=== PATIENT | female | born 1945 | race Caucasian/White ===

== ENCOUNTER 2016-10-18 08:12 | Day surgery (SDC) | payer MEDICARE, BC ==
[~2016-10-18] VITALS: Ht 170.2 cm; Wt 72.6 kg
--- NOTE | ~2016-10-18 | OP ---
Record Of Operation [facility] [address] [place]. [address] NAME: NUHA NAYLOR : 41 STATUS : REG [facility]#: [id number] AGE: 71 ADM/REG DATE : 10/18/16 MR#: [id number] REPORT SERV DATE: 10/18/16 DICTATED BY: GUILHERME ANTHONY DATE: 10/18/16 REPORT STATUS : Draft TRANSCRIBED BY: MODL DATE: 10/18/16 DATE OF PROCEDURE: 10/18/2016 PREOPERATIVE DIAGNOSIS: Left ureteral stone. POSTOPERATIVE DIAGNOSIS: Left ureteral stone. OPERATIVE PROCEDURE: 1. Left ureteroscopy with stone extraction. 2. Left ureteral stent placement. 3. Cysto left retrograde pyelogram. ANESTHESIA: General endotracheal. SPECIMENS: Ureteral stone. DRAINS: #6-Scottish 26 cm Microvasive Percuflex stent. COMPLICATIONS: None. ESTIMATED BLOOD LOSS: Less than 3 mL. IMMEDIATE POSTOP: Satisfactory. DESCRIPTION OF PROCEDURE: The patient was brought to the cysto suite, given inhalational anesthetic, and placed in lithotomy position. Perineum and genitalia were prepped and draped in sterile fashion. Video cystourethroscopy was then performed using #22 cystoscope Foroblique lens. Immediately noted was hyperemia and edema around the left ureteral orifice. The orifice was easily identifiable, however. A left retrograde pyelogram was performed using a #8 cone-tipped ureteral catheter. This revealed filling of a normal intramural ureter with a small filling defect and a subtle caliber change in the ureter at the location of a suspect calcification seen on KUB prior to her surgery and keeping with the patient's known history of ureteral stone. At this point, a 0.35 Sensor wire was passed into the ureter and up into what was felt to be the pyelocalyceal system. A 5-Scottish open- ended Pollack catheter was then passed over the wire up into the pyelocalyceal system and dilute contrast was injected in a retrograde fashion opacifying a dilated pyelocalyceal system. The wire was replaced into the upper pole collecting system through the Pollack catheter, which was removed leaving the wire in place. A 4 cm UroMax dilating balloon was then passed over the wire, and the balloon was then inflated using the included pressure type syringe while observing on-table fluoroscopy. Strict adherence to manufacture's balloon pressure limitations were followed. The balloon was deflated and removed leaving the wire in place. The cystoscope was removed leaving the wire in place. A short rigid ureteroscope was then passed under video monitoring per urethra easily into the left distal ureter where an irregular yellow stone was identified. It was engaged in a Hinds stone basket and extracted without difficulty. The scope was reintroduced. There were noted no additional stone fragments noted. There was no evidence of trauma to the ureter. The Record Of Operation [address] [address] NAME: NUHA NAYLOR : 41 STATUS : [place] [facility] [place] PAT#: [id number] AGE: 71 ADM/REG DATE : 10/18/16 MR#: [id number] REPORT SERV DATE: 10/18/16 DICTATED BY: GUILHERME ANTHONY DATE: 10/18/16 REPORT STATUS : Draft TRANSCRIBED BY: RAFAEL DATE: 10/18/16 cystoscope was then reintroduced over the wire and a 6-Scottish, 26 cm Microvasive Percuflex stent without removal suture was passed over the wire and pushed up into the pyelocalyceal system. The wire was removed. The stent assumed normal configuration both proximally and distally. This was documented on-table fluoroscopy. At this point, the cystoscope was removed. The patient was awakened and sent to recovery in satisfactory condition. /RAFAEL Guilherme Anthony M.D. / [id number] CC: Denise Prince M.D.
[~2016-10-18 08:12] MED LIST: ACET500CAP PO; ASAB PO; CRANBERRY PO; DCN100 PO; ESTRACE VAGIN42.5 GM V; FISH OIL1200 MG PO; MONODOX100 MG PO; PRILO PO; PROBIOTIC PO; SYN88 PO; ZYRTEC ALLGY10 MG PO
[2016-10-18 08:42] LABS: BASOPHILS 1.2 %; BASOPHILS ABSOLUTE 0.06 10/3/uL (0.0-0.16); EOSINOPHILS 3.2 %; EOSINOPHILS ABSOLUTE 0.16 10/3/uL (0.0-0.53); HEMATOCRIT 41.2 % (36.0-48.0); HEMOGLOBIN 13.9 g/dL (12.0-16.0); IMMATURE GRANULOCYTES 0.2 %; IMMATURE GRANULOCYTES ABSOLUTE 0.01 10/3/uL (0.0-0.11); LYMPHOCYTES 37.1 %; LYMPHOCYTES ABSOLUTE 1.87 10/3/uL (0.67-4.30); MEAN CORPUS HGB CONC 33.7 g/dL (32.0-36.0); MEAN CORPUSCULAR HEMOGLOB 29.9 pg (26.0-34.0); MEAN CORPUSCULAR VOLUME 88.6 fL (80-100); MEAN PLATELET VOLUME 10.4 fL (9.2-13.0); MONOCYTES 11.3 %; MONOCYTES ABSOLUTE 0.57 10/3/uL (0.21-1.20); NEUTROPHILS ABSOLUTE 2.37 10/3/uL (2.02-8.40); PLATELET COUNT 256 10/3/uL (150-400); RBC DISTRIBUTION WIDTH 12.9 % (12.0-16.0); RED CELL COUNT 4.65 10/6/uL (4.0-5.6)
[2016-10-18 08:43] LABS: MANUAL DIFF NO %
[2016-10-18 08:59] LABS: A/G RATIO 1.1 (0.7-1.9); ALBUMIN 3.8 G/DL (3.5-5.0); ALKALINE PHOSPHATASE 73 U/L (45-117); BUN (BLOOD UREA NITROGEN) 13 MG/DL (6-23); CHLORIDE, SERUM 106 MMOL/L (96-112); CO2 (CARBON DIOXIDE) 30 MMOL/L (24-34); CREATININE 0.52 MG/DL (0.55-1.02); GFR AFRICAN AMERICAN 110 ML/MIN (>=60); GFR NON AFRICAN AMERICAN 95 ML/MIN (>=60); GLOBULIN 3.6 G/DL (2.5-4.1); GLUCOSE, SERUM 90 MG/DL (60-99); POTASSIUM, SERUM 4.1 MMOL/L (3.5-5.3); SGOT(AST) 14 U/L (5-40); SGPT(ALT) 23 U/L (5-65); SODIUM, SERUM 141 MMOL/L (135-148); TOTAL BILIRUBIN 0.4 MG/DL (0-1.2); TOTAL PROTEIN 7.4 G/DL (6.0-8.5)
[2016-10-21 01:15] LABS: STONE COMPOSITION TWO DNR (())
== END 2016-10-18 14:43 | disposition home or self-care (01) ==
LOC: SDC 08:12
PROVIDERS: Urology
PROC: 0T778DZ Dilation of Left Ureter with Intraluminal Device, Via Natural or Artificial Opening Endoscopic (ICD-10-PCS; 2016-10-18)
PROC: BT1FZZZ Fluoroscopy of Left Kidney, Ureter and Bladder (ICD-10-PCS; 2016-10-18)
PROC: 0TC78ZZ Extirpation of Matter from Left Ureter, Via Natural or Artificial Opening Endoscopic (ICD-10-PCS; principal; 2016-10-18 10:00)
DX: N20.1 Calculus of ureter (principal); K21.9 Gastro-esophageal reflux disease without esophagitis; E03.9 Hypothyroidism, unspecified; E78.00 Pure hypercholesterolemia, unspecified; K58.9 Irritable bowel syndrome, unspecified; K76.0 Fatty (change of) liver, not elsewhere classified; Z88.0 Allergy status to penicillin; Z88.2 Allergy status to sulfonamides; Z88.5 Allergy status to narcotic agent; Z88.8 Allergy status to other drugs, medicaments and biological substances; Z91.040 Latex allergy status; Z98.890 Other specified postprocedural states
CPT/HCPCS: 71010; 74420; 80053; 82365; 85025; 93005; A9270-GY; C1726; C1758; C2617; J2405; J2710; J3010; Q9967